=== PATIENT | female | born 1965 | race Caucasian/White ===

== ENCOUNTER 2021-09-16 06:39 | Emergency (ER) | payer OTHER ==
[~2021-09-16] VITALS: Ht 162.6 cm; Wt 122.5 kg
[2021-09-16] MEDS ORDERED: PANT40 PO (07:15)
[2021-09-16] MEDS ORDERED: METF500 PO (07:15)
[2021-09-16] MEDS ORDERED: PROP10 PO (07:16)
[2021-09-16] MEDS ORDERED: POTA8 PO (07:16)
[2021-09-16] MEDS ORDERED: HYDCHL25 PO (07:16)
[2021-09-16] MEDS ORDERED: VENL75ER PO (07:16)
[2021-09-16] MEDS ORDERED: LORA10ER PO (07:17)
[2021-09-16] MEDS ORDERED: VITAMIN D5000 UNIT PO (07:17)
[2021-09-16] MEDS ORDERED: Vitamin B-121000 MCG PO (07:17)
[2021-09-16] MEDS ORDERED: Carafate1 GM/10 ML PO (08:16)
== END 2021-09-16 11:00 | disposition home or self-care (01) ==
LOC: ER 06:39
DX: K21.9 Gastro-esophageal reflux disease without esophagitis (principal); Z88.5 Allergy status to narcotic agent; Z79.899 Other long term (current) drug therapy
CPT/HCPCS: 93005; 93010; 99283-25; A9270; J3475